=== PATIENT | female | born 1975 | race Caucasian/White ===

== ENCOUNTER 2016-12-15 09:35 | Emergency (ER) | payer OTHER ==
[~2016-12-15] VITALS: Ht 162.6 cm; Wt 73.5 kg
[~2016-12-15 09:35] MED LIST: CHOL5000 PO; IMI100 PO; LORA0.5T PO; MORP15TA PO; MORP60CA19 PO; TIZA4CAP8 PO
[2016-12-15 09:53] VITALS: BP 133/95; PULSE 107; RESP 16; O2SAT 98
--- NOTE | 2016-12-15 10:55 | ED.REPORT ---
HPI-Dizziness / Weakness Date of Service Dec 15, 2016 ED Provider: Doc,Ed MD History of Present Illness: dizzy and nausea for 8 days. , decreased appitete. no vomiting. urination today. radha is primary care. no nausea meds. took otc heartburn medication ranitidine no help. able to reproduce symptom with rapid head movement. has been taking baths since this started. Concerned because she had to grab the counter last evening. "fuzzy" feeling. Nursing Notes Stated Complaint: DIZZY Chief Complaint: General Complaint Nursing Notes Reviewed: Yes Allergies: Coded Allergies: citalopram (Verified Allergy, Unknown, suicidal, 12/15/16) Scheduled Cholecalciferol (Vitamin D3) (Vitamin D3) 5,000 Unit Capsule 5,000 UNIT PO DAILY Morphine Sulfate ER (Morphine Sulfate ER) 60 Mg Capsule 60 MG PO BID Tizanidine (Tizanidine) 4 Mg Capsule 2-4 MG PO HS Scheduled PRN Lorazepam (Lorazepam) 0.5 Mg Tablet 0.5 MG PO Q6H PRN PRN For Anxiety Morphine Sulfate (Morphine Sulfate) 15 Mg Tablet 15 MG PO q4-6h PRN PRN breakthrough pain Sumatriptan (Imitrex) 100 Mg Tablet 50-100 MG PO PRN migraine MR- NTE 2 doses/24 hours General Time Seen by MD: 10:55 Chief Complaint Dizzy, Other (nausea) Hx Obtained From: Patient Onset Occurred: More than a week ago... Context of Onset: Other (all the time) Past Medical History Past Medical History chronic pain meds for fibromalgyia 12/15/2016 Denies: Asthma, Diabetes mellitus Past Surgical History lipoma removed 2015 Reports: Hysterectomy Smoking History Current Every Day Smoker (2 cig a day down from 1/2 a pack a day for 30 plus years), Heavy Tobacco Smoker Social History Alcohol Use: "Social" Drug Use: Denies drug use Other Social History: Occupation no work or school Ambulatory Status Independent Review of Systems Basic Review of Systems : No dysuria Allergy / Immune: No allergy Physical Exam Initial Vital Signs Vital Signs (First) Date Time Temp Pulse Resp B/P Pulse Ox O2 Delivery O2 Flow Rate FiO2 12/15/16 09:53 37.5 107 16 133/95 98 Room Air Initial VS: Reviewed, Vital signs normal ENT: Mucous membranes moist, Conjunctiva normal, No scleral icterus Neck: Supple, Non-tender, Full range of motion Abdomen / GI: Soft, Non-tender, No guarding, No rebound, No distention Back: No CVA tenderness Lymphatic: No lymphadenopathy Extremities: Vascular intact, Neuro intact, No swelling, No tenderness Skin: Warm, Dry, No cyanosis Psychiatric: Mood/affect normal, Behavior normal, Normal thought content General/Constitutional: Awake, Alert, No acute distress, Well appearing, Well developed, Well hydrated, Well nourished, Cooperative, Not toxic appearing Head / Eyes: Atraumatic, Normocephalic, PERRL able to reproduce the symptoms with rapid movement of head up. Patient observed speaking with SO. Head is able to move without signs of dizziness Respiratory / Chest: Atraumatic, Breath sounds NL, Breath sounds = bilat, No respiratory distress Cardiovascular: Heart rate NL, Regular rhythm, Heart sounds NL, No gallop Neurologic: Oriented X3, Speech NL, No motor deficits ENT: Atraumatic, Airway patent, Mucous membranes moist, Pharynx NL Interpretation & Diagnostics Interpretation & Diagnostics: TECHNIQUE: Pre-contrast 4.5 mm thick sections acquired from the foramen magnum to the vertex. After the administration of intravenous contrast, 1 mm thick sections acquired from the aortic arch through the [place] of [place]. Post-contrast 4.5 mm thick sections then re-acquired from the foramen magnum to the vertex. 3-dimensional jentiux-hagaofoiw-bauyklrzod (MIP) and/or volume rendering reformats were acquired of the central intracranial vasculature and neck separately. For radiation dose reduction, the following was used: automated exposure control, adjustment of mA and/or kV according to patient size. COMPARISON: [facility], CT, CT BRAIN WO CON, 12/15/2016, 11:41. FINDINGS: Image quality: Excellent. The ventricular system and cortical sulci are normal in size and appearance for the patient's stated age. There is no acute intra-or extra axial fluid collection. No acute hemorrhage, mass lesion or midline shift. Brainstem is unremarkable. Globes are symmetrical. Sinuses are aerated. Osseous structures are intact. The posterior circulation demonstrates a right vertebral artery dominance. Basilar artery and posterior cerebral arteries demonstrate no areas of hemodynamically significant stenosis, vascular occlusion or aneurysmal dilation. Posterior communicating arteries are within normal limits. 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 The anterior circulation, including the anterior and middle cerebral arteries, as well as internal carotid arteries demonstrates no areas of hemodynamically significant stenosis, vascular occlusion or aneurysmal dilation. The origins of the left and right common, internal and external carotid arteries demonstrate no areas of hemodynamically significant stenosis, vascular occlusion or aneurysmal dilation. Origins of the left and right vertebral arteries demonstrate no areas of hemodynamically significant stenosis, vascular occlusion or aneurysmal dilation. Aortic arch demonstrates conventional anatomy. Limited, visualized portions subclavian vasculature are unremarkable. IMPRESSION: 1. No acute intracranial process. 2. No areas of hemodynamically significant stenosis, vascular occlusion or aneurysmal dilation within the posterior circulation. No evidence of basilar artery thrombosis. 3. No areas of hemodynamically significant stenosis, vascular occlusion or aneurysmal dilation within the anterior circulation. 4. No areas of hemodynamically significant stenosis, vascular occlusion or aneurysmal dilation within the neck vasculature. Dictated by: Julita Mesa M.D. on 12/15/2016 at 14:59 Approved by: Julita Mesa M.D. on 12/15/2016 at 15:10 Lab Results Interpretation Result Diagram: 12/15/16 1137 12/15/16 1137 Test 12/15/16 11:20 12/15/16 11:37 Hold Urine Received (Received) White Blood Count 12.2th/mm3 (3.8-10.1) Red Blood Count 4.82mil/mm3 (3.90-5.20) Hemoglobin 14.5g/dL (12.0-15.6) Hematocrit 42.5% (35.0-46.0) Mean Corpuscular Volume 88.2fL (81-100) Mean Corpuscular Hemoglobin 30.1pg (27.0-35.0) Mean Corpuscular Hemoglobin Concent 34.1% (32.0-37.0) Red Cell Distribution Width 12.7% (12.3-15.4) Platelet Count 305bil/L (150-400) Neutrophils (%) (Auto) 77.4% (40-74) Lymphocytes (%) (Auto) 15.4% (14-46) Monocytes (%) (Auto) 5.9% (4-12) Eosinophils (%) (Auto) 0.9% (0-5) Basophils (%) (Auto) 0.2% (0-3) Sodium Level 138mEq/L (134-144) Potassium Level 4.2mEq/L (3.5-5.2) Chloride Level 98mEq/L (97-108) Carbon Dioxide Level 28mmol/L (18-29) Blood Urea Nitrogen 12mg/dL (6-24) Creatinine 0.75mg/dL (0.57-1.00) Estimat Glomerular Filtration Rate 121mL/min (>59) Glucose Level 99mg/dL (60-99) Calcium Level 9.4mg/dL (8.5-10.1) Magnesium Level 2.1mg/dL (1.6-2.6) Total Bilirubin 0.4mg/dL (0.0-1.2) Aspartate Amino Transf (AST/SGOT) 16U/L (0-50) Alanine Aminotransferase (ALT/SGPT) 11U/L (0-32) Alkaline Phosphatase 69U/L (25-150) Troponin T < 0.010ug/L (0.0-0.011) Total Protein 7.4g/dL (6.4-8.4) Albumin 4.6g/dL (3.4-5.0) CT Head Interpretation OMPARISON: None. FINDINGS: Image quality: Excellent. CSF spaces: Basal cisterns are patent. No extra-axial fluid collections. Ventricles are normal in size and shape. Brain: No midline shift. No intracranial masses or hemorrhage. Streeter-white matter interface is normal. The basilar artery appears slightly hyperdense. Skull and face: Calvarium and visualized facial bones are intact, without suspicious lesions. Sinuses: Visualized sinuses and mastoids are clear. IMPRESSION: 1. Slightly hyperdense appearance of the basilar artery. If there is any clinical concern for thrombosis of the basilar artery and posterior fossa infarct, further imaging with CTA or MRI is recommended. 2. No other acute intracranial findings. These findings were discussed with CHARLIE Gonzalez at 12:06 PM on 12/15/16. Re-Eval/Medical Decision Med Decision/Clinical Course patient reports no change in fuzzy feeling. CT and CT angio are negative. EKG is normal with normal labs. Paitent to follow with primary care, Dr. Ochoa. Urine positive for opiates and oxycodone. Patient not provided oxycodone. Dr. Zylestra requesting confirmation. Ordered and sent to lab Patient Discharge & Departure Impression: Primary Impression: Dizzy Additional Impressions: Nausea Benign positional vertigo Laterality: unspecified laterality Qualified Code: H81.10 - Benign paroxysmal vertigo, unspecified ear Disposition: Home Patient Instructions: Benign Paroxysmal Positional Vertigo (ED), High Fiber Diet (ED), Vertigo (ED) Additional Instructions: I am sorry this is happening to you. Your EKG is normal. Your troponin is normal , no sign of a heart attack. Your labs are normal. The brain CT was normal, no sign of tumor. The CT angio is normal, no sign of aneursym or thrombosis. You can use zofran 4 mg to help with the nausea. This does cause constipation so use with caution. Continue with meclizine 50 mg 3 times a day. Please follow with primary care for a recheck in 7 to 10 days. Referrals: Huang Wesley MD EDSupervising Provider for APC: Hiram Sharma MD, Phillip J MD Baerg, Sue ARNP Dec 15, 2016 10:55
[2016-12-15 11:51] LABS: BASOPHILS % (AUTO) 0.2 % (0-3); EOSINOPHILS % (AUTO) 0.9 % (0-5); MONOCYTES % (AUTO) 5.9 % (4-12); Mean Corpuscular Hemoglobin 30.1 pg (27.0-35.0); Mean Corpuscular Volume 88.2 fL (81-100); NEUTROPHILS % (AUTO) 77.4 % (40-74); Platelet Count 305 bil/L (150-400)
--- NOTE | 2016-12-15 12:10 | DRSVH ---
PROCEDURE: CT BRAIN WITHOUT CONTRAST ([id number]) INDICATIONS: dizzy TECHNIQUE: Noncontrast 4.5 mm thick angled axial sections acquired from the foramen magnum to the vertex, with c oronal reformats. COMPARISON: None. FINDINGS: Image quality: Excellent. CSF spaces: Basal cisterns are patent. No extra-axial fluid collections. Ventricles are normal in size and shape. Brain: No midline shift. No intracranial masses or hemorrhage. Streeter-white matter interface is norm al. The basilar artery appears slightly hyperdense. Skull and face: Calvarium and visualized facial bones are intact, without suspicious lesions. Sinuses: Visualized sinuses and mastoids are clear. IMPRESSION: 1. Slightly hyperdense appearance of the basilar artery. If there is any clinical concern for thrombo sis of the basilar artery and posterior fossa infarct, further imaging with CTA or MRI is recommended . 2. No other acute intracranial findings. These findings were discussed with CHARLIE Gonzalez at 12:06 PM on 12/15/16. Dictated by: Rachel Ruiz M.D. on 12/15/2016 at 12:02 Approved by: Rachel Ruiz M.D. on 12/15/2016 at 12:08
[2016-12-15 12:21] LABS: Magnesium 2.1 mg/dL (1.6-2.6)
[2016-12-15 12:27] LABS: TROPONIN T < 0.010 ug/L (0.0-0.011)
[2016-12-15 14:52] VITALS: BP 109/78; PULSE 79; RESP 17; O2SAT 98
--- NOTE | 2016-12-15 15:12 | DRSVH ---
PROCEDURE: CT ANGIO HEAD AND NECK (P) INDICATIONS: ? post fossa infarct TECHNIQUE: Pre-contrast 4.5 mm thick sections acquired from the foramen magnum to the vertex. After the adminis tration of intravenous contrast, 1 mm thick sections acquired from the aortic arch through the [place] of [place]. Post-contrast 4.5 mm thick sections then re-acquired from the foramen magnum to the vert ex. 3-dimensional siskfbs-wqrbvtbhm-pznrckqbct (MIP) and/or volume rendering reformats were acquired of the central intracranial vasculature and neck separately. For radiation dose reduction, the foll owing was used: automated exposure control, adjustment of mA and/or kV according to patient size. COMPARISON: [facility], CT, CT BRAIN WO CON, 12/15/2016, 11:41. FINDINGS: Image quality: Excellent. The ventricular system and cortical sulci are normal in size and appearance for the patient's stated age. There is no acute intra-or extra axial fluid collection. No acute hemorrhage, mass lesion or mid line shift. Brainstem is unremarkable. Globes are symmetrical. Sinuses are aerated. Osseous structure s are intact. The posterior circulation demonstrates a right vertebral artery dominance. Basilar artery and posteri or cerebral arteries demonstrate no areas of hemodynamically significant stenosis, vascular occlusion or aneurysmal dilation. Posterior communicating arteries are within normal limits. Duplicated superi or cerebellar arteries are noted bilaterally consistent with congenital variation. The anterior circulation, including the anterior and middle cerebral arteries, as well as internal ca rotid arteries demonstrates no areas of hemodynamically significant stenosis, vascular occlusion or a neurysmal dilation. The origins of the left and right common, internal and external carotid arteries demonstrate no areas of hemodynamically significant stenosis, vascular occlusion or aneurysmal dilation. Origins of the l eft and right vertebral arteries demonstrate no areas of hemodynamically significant stenosis, vascul ar occlusion or aneurysmal dilation. Aortic arch demonstrates conventional anatomy. Limited, visualiz ed portions subclavian vasculature are unremarkable. IMPRESSION: 1. No acute intracranial process. 2. No areas of hemodynamically significant stenosis, vascular occlusion or aneurysmal dilation within the posterior circulation. No evidence of basilar artery thrombosis. 3. No areas of hemodynamically significant stenosis, vascular occlusion or aneurysmal dilation within the anterior circulation. 4. No areas of hemodynamically significant stenosis, vascular occlusion or aneurysmal dilation within the neck vasculature. Dictated by: Julita Mesa M.D. on 12/15/2016 at 14:59 Approved by: Julita Mesa M.D. on 12/15/2016 at 15:10
== END 2016-12-15 15:35 | disposition home or self-care (01) ==
LOC: SED 09:35
DX: H81.10 Benign paroxysmal vertigo, unspecified ear (principal); R11.0 Nausea; G89.29 Other chronic pain; F17.210 Nicotine dependence, cigarettes, uncomplicated; Z88.8 Allergy status to other drugs, medicaments and biological substances
CPT/HCPCS: 36415; 70450; 70496; 70498; 80053; 81025; 83735; 84484; 85025; 93005; 96374; 99285; G0480; J1200; Q9967